=== PATIENT | female | born 1975 | race Caucasian/White ===

== ENCOUNTER 2020-09-06 14:31 | Emergency (ER) | payer BC ==
[~2020-09-06] VITALS: Ht 157.5 cm; Wt 78.9 kg
[2020-09-06 14:51] VITALS: Ht 157.5 cm; Wt 78.9 kg
[2020-09-06] MEDS ORDERED: SYMBICORT 16010.2 GM (14:54)
[2020-09-06] MEDS ORDERED: IVERMECTIN3 MG (14:54)
[2020-09-06] MEDS ORDERED: CLIMARA 0.0.05 MG/PA (14:54)
[2020-09-06] MEDS ORDERED: VIBRAMYCIN 100100 MG (14:54)
[2020-09-06] MEDS ORDERED: ALBUTEROL1.25 MG/3 (14:55)
[2020-09-06] MEDS ORDERED: PROMETRIUM100 MG (14:56)
[2020-09-06 18:00] VITALS: BP 120/68
== END 2020-09-06 18:00 | disposition home or self-care (01) ==
LOC: D.ER 14:31
DX: M79.605 Pain in left leg (principal); Z20.822 Contact with and (suspected) exposure to COVID-19